=== PATIENT | female | born 1990 | race African-American/Black ===

== ENCOUNTER 2017-05-28 07:31 | Inpatient (IN) ==
[2017-05-28] MEDS ORDERED: ceFAZolin 2,000 MG in PREMIX 1 EACH IV ONE (07:49)
[2017-05-28] MEDS ORDERED: FAMOTIDINE 20 MG/2 ML VIAL IV ONE (07:49)
[2017-05-28] MEDS ORDERED: CITRIC ACID/SODIUM CITRATE 30 ML UDCUP PO ONE (07:49)
[2017-05-28] MEDS ORDERED: LACTATED RINGERS 1,000 ML IV SCH (08:00)
[2017-05-28 08:23] LABS: Basophils % 0.4 % (0.0-0.8); Eosinophils # 0.1 10*3/uL (0.0-0.87); Eosinophils % 2.1 % (0.00-10.9); Hemoglobin 11.2 GM/DL (12.0-16.0); Immature Granulocytes Absolute 0.05 #; Lymphocytes # 1.4 10*3/uL (1.4-4.0); Lymphocytes % 26.5 % (21.3-54.2); Mean Corpuscular HGB Conc 33.9 GM/DL (32-36); Mean Corpuscular Hemoglobin 31 PG (27-34); Mean Corpuscular Volume 92.4 FL (87-102); Monocytes # 0.5 10*3/uL (0.11-0.8); Monocytes % 9.8 % (1.7-12.7); Neutrophils # 3.1 10*3/uL (1.4-7.4); Neutrophils % 60.2 % (38.7-73.9); Platelet Count 104 T/CUMM (130-400); Red Blood Count 3.57 MC/CUMM (3.8-5.5); Red Cell Distribution Width 12.7 % (9.3-17.3); White Blood Count 5.2 T/CUMM (4-12)
[2017-05-28] MEDS ORDERED: LACTATED RINGERS 1,000 ML IV ONE (08:27)
[2017-05-28] MEDS ORDERED: OXYTOCIN 10 UNIT/ML VIAL IM ONE (08:36)
[2017-05-28] MEDS ORDERED: OXYTOCIN/LR 30 UNIT/1,000 ML BAG IV ONE (08:36)
[2017-05-28 08:42] LABS: Albumin 2.7 G/DL (3.4-5.0); Bilirubin,Total 0.4 MG/DL (0.2-1.0); Calcium 8.2 MG/DL (8.5-10.1); Osmolality,Calculated 274.4 MOS/KG (273-304); Potassium 3.5 MMOL/L (3.5-5.1); Total Protein 5.5 G/DL (6.4-8.3)
[2017-05-28] MEDS ORDERED: ePHEDrine 50 MG/ML AMP ONE (08:47)
[2017-05-28 10:06] LABS: Cord Venous Blood HCO3 24.7 MMOL/L; Cord Venous Blood PCO2 45.3 MMHG; Cord Venous Blood PO2 31.7
[2017-05-28 10:47] LABS: Apearance,Urine CLEAR (Clear); Bilirubin,Urine Negative (Negative); Blood, Urine Negative (Negative); Glucose,Urine (UA) Negative (Negative); Ketones,Urine Negative (Negative); Mucus,Urine Occasional /LPF (Occasional); Nitrite,Urine Negative (Negative); Protein,Urine Negative; Urine Color Straw (Yellow); Urine Specific Gravity 1.005 (1.001-1.035); Urine Urobilinogen < 2.0 EU/DL (0.2-1.0); WBC,Urine <1 /HPF (0-6)
[2017-05-28] MEDS ORDERED: MIDAZOLAM 2 MG/2 ML VIAL ONE (10:59)
[2017-05-28] MEDS ORDERED: KETAMINE 500 MG/10 ML VIAL ONE (11:00)
[2017-05-28] MEDS ORDERED: ONDANSETRON 4 MG/2 ML VIAL ONE ×2 (11:00→11:50)
[2017-05-28] MEDS ORDERED: LIDOCAINE MPF 2% /EPI 20 ML VIAL ONE (11:00)
[2017-05-28] MEDS ORDERED: PROMETHAZINE 25 MG/1 ML VIAL ONE (11:01)
[2017-05-28] MEDS ORDERED: MORPHINE 10 MG/10 ML VIAL ONE (11:02)
[2017-05-28] MEDS ORDERED: HYDROmorphone 2 MG/1 ML VIAL IV PRN (11:37)
[2017-05-28] MEDS ORDERED: OXYTOCIN/LR 20 UNIT/1,000 ML BAG IV ONE ×2 (11:42→13:02)
[2017-05-28] MEDS ORDERED: ONDANSETRON 4 MG/2 ML VIAL IV PRN ×2 (11:50→13:02)
[2017-05-28] MEDS ORDERED: ACETAMINOPHEN 325 MG TABLET PO PRN (13:02)
[2017-05-28] MEDS ORDERED: RHO(D) IMMUNE GLOBULIN 300 MCG SYRINGE IM ONE (13:30)
[2017-05-28 15:30] LABS: Basophils % 0.2 % (0.0-0.8); Eosinophils % 0.2 % (0.00-10.9); Hematocrit 30.8 VOL% (35.7-47.0); Hemoglobin 10.3 GM/DL (12.0-16.0); Immature Granulocytes Absolute 0.09 #; Lymphocytes % 10.5 % (21.3-54.2); Mean Corpuscular HGB Conc 33.4 GM/DL (32-36); Mean Corpuscular Hemoglobin 31 PG (27-34); Mean Corpuscular Volume 92.2 FL (87-102); Mean Platelet Volume 11.4 FL (9.6-12.0); Monocytes # 0.8 10*3/uL (0.11-0.8); Monocytes % 8.1 % (1.7-12.7); Neutrophils # 7.6 10*3/uL (1.4-7.4); Platelet Count 106 T/CUMM (130-400); Red Blood Count 3.34 MC/CUMM (3.8-5.5); Red Cell Distribution Width 12.7 % (9.3-17.3); White Blood Count 9.5 T/CUMM (4-12)
[2017-05-28] MEDS ORDERED: MEPERIDINE 25 MG/1 ML VIAL IV PRN (15:32)
[2017-05-28] MEDS ORDERED: miSOPROStol 200 MCG TABLET PO ONE (17:16)
[2017-05-28] MEDS: LACTATED RINGERS 1,000 ML IV SCH (17:24)
[2017-05-28] MEDS: ceFAZolin 1,000 MG in SYRINGE 1 EACH IV SCH (17:42)
[2017-05-28] MEDS: IBUPROFEN 800 MG TABLET PO PRN (19:51)
[2017-05-29] MEDS: ceFAZolin 1,000 MG in SYRINGE 1 EACH IV SCH (02:25)
[2017-05-29] MEDS: LACTATED RINGERS 1,000 ML IV SCH (02:27)
[2017-05-29 07:29] LABS: Basophils % 0.1 % (0.0-0.8); Eosinophils % 0.4 % (0.00-10.9); Hematocrit 21.4 VOL% (35.7-47.0); Immature Granulocytes Absolute 0.09 #; Lymphocytes # 0.9 10*3/uL (1.4-4.0); Lymphocytes % 9.3 % (21.3-54.2); Mean Corpuscular Hemoglobin 32 PG (27-34); Mean Corpuscular Volume 90.7 FL (87-102); Mean Platelet Volume 11.7 FL (9.6-12.0); Monocytes # 0.8 10*3/uL (0.11-0.8); Monocytes % 9.1 % (1.7-12.7); Neutrophils # 7.4 10*3/uL (1.4-7.4); Neutrophils % 80.1 % (38.7-73.9); Platelet Count 112 T/CUMM (130-400); White Blood Count 9.3 T/CUMM (4-12)
[2017-05-29 07:31] LABS: Hemoglobin 7.5 GM/DL (12.0-16.0); Red Blood Count 2.36 MC/CUMM (3.8-5.5)
[2017-05-29] MEDS: IBUPROFEN 800 MG TABLET PO PRN ×2 (07:45→17:05)
[2017-05-29 07:49] LABS: Band Neutrophils 8 % (0-10); Lymphocytes 12 % (20-55); Myelocytes 1 %; Segmented Neutrophils 77 % (50-85); Total Cells Counted 100
[2017-05-29 07:50] LABS: Hypochromasia 1+; Platelet Estimate Decreased
[2017-05-29 07:51] LABS: Giant Platelets Few
[2017-05-29] MEDS ORDERED: SODIUM CHLORIDE 0.9% 1,000 ML IV PRN (09:10)
[2017-05-29] MEDS: MULTIVITAMIN (PRENATAL) TABLET PO SCH (10:24)
[2017-05-29] MEDS: DOCUSATE SODIUM 100 MG CAPSULE PO SCH ×3 (10:24→22:05)
[2017-05-29] MEDS: SIMETHICONE CHEW 80 MG TABLET PO PRN (10:24)
[2017-05-29 18:58] LABS: Basophils % 0.2 % (0.0-0.8); Eosinophils # 0.1 10*3/uL (0.0-0.87); Eosinophils % 0.6 % (0.00-10.9); Hematocrit 26.2 VOL% (35.7-47.0); Hemoglobin 8.8 GM/DL (12.0-16.0); Immature Granulocytes % 1.4 %; Immature Granulocytes Absolute 0.15 #; Lymphocytes # 1.1 10*3/uL (1.4-4.0); Lymphocytes % 10.4 % (21.3-54.2); Mean Corpuscular HGB Conc 33.6 GM/DL (32-36); Mean Corpuscular Hemoglobin 31 PG (27-34); Mean Corpuscular Volume 91.3 FL (87-102); Mean Platelet Volume 12.1 FL (9.6-12.0); Monocytes # 1.1 10*3/uL (0.11-0.8); Monocytes % 10.3 % (1.7-12.7); Neutrophils # 8.1 10*3/uL (1.4-7.4); Neutrophils % 77.1 % (38.7-73.9); Red Blood Count 2.87 MC/CUMM (3.8-5.5); Red Cell Distribution Width 13.2 % (9.3-17.3); White Blood Count 10.5 T/CUMM (4-12)
[2017-05-29 19:09] LABS: Platelet Count 104 T/CUMM (130-400)
[2017-05-29] MEDS: FERROUS SULFATE 325 MG TABLET PO SCH (22:05)
[2017-05-30] MEDS: IBUPROFEN 800 MG TABLET PO PRN (01:54)
[2017-05-30 06:18] LABS: Hematocrit 22.5 VOL% (35.7-47.0); Hemoglobin 7.8 GM/DL (12.0-16.0)
[2017-05-30] MEDS ORDERED: SODIUM CHLORIDE 0.9% 1,000 ML IV PRN (07:01)
[2017-05-30] MEDS: MULTIVITAMIN (PRENATAL) TABLET PO SCH (09:16)
[2017-05-30] MEDS: DOCUSATE SODIUM 100 MG CAPSULE PO SCH ×2 (09:16→21:01)
[2017-05-30] MEDS: MAGNESIUM HYDROXIDE SUSP 30 ML UDCUP PO PRN ×2 (09:16→21:01)
[2017-05-30] MEDS: SIMETHICONE CHEW 80 MG TABLET PO PRN ×2 (09:16→21:01)
[2017-05-30] MEDS: FERROUS SULFATE 325 MG TABLET PO SCH ×2 (09:16→21:01)
[2017-05-30] MEDS ORDERED: oxyCODONE/ACETAMINOPHEN 5-325 MG TABLET PO PRN (14:05)
[2017-05-30 15:04] LABS: Basophils % 0.2 % (0.0-0.8); Eosinophils # 0.1 10*3/uL (0.0-0.87); Eosinophils % 1.1 % (0.00-10.9); Hematocrit 29.6 VOL% (35.7-47.0); Immature Granulocytes % 1.3 %; Immature Granulocytes Absolute 0.13 #; Lymphocytes # 1.1 10*3/uL (1.4-4.0); Mean Corpuscular HGB Conc 33.8 GM/DL (32-36); Mean Corpuscular Hemoglobin 30 PG (27-34); Mean Corpuscular Volume 87.8 FL (87-102); Mean Platelet Volume 11.7 FL (9.6-12.0); Monocytes % 10.3 % (1.7-12.7); Neutrophils # 7.6 10*3/uL (1.4-7.4); Neutrophils % 76.1 % (38.7-73.9); Platelet Count 106 T/CUMM (130-400); Red Blood Count 3.37 MC/CUMM (3.8-5.5); Red Cell Distribution Width 14.6 % (9.3-17.3); White Blood Count 10.1 T/CUMM (4-12)
[2017-05-30] MEDS: oxyCODONE/ACETAMINOPHEN 5-325 MG TABLET PO PRN ×2 (17:02→22:28)
[2017-05-31] MEDS: IBUPROFEN 800 MG TABLET PO PRN (04:30)
[2017-05-31 08:21] VITALS: BP 108/67
[2017-05-31] MEDS: MULTIVITAMIN (PRENATAL) TABLET PO SCH (09:20)
[2017-05-31] MEDS: DOCUSATE SODIUM 100 MG CAPSULE PO SCH (09:20)
[2017-05-31] MEDS: FERROUS SULFATE 325 MG TABLET PO SCH (09:20)
[2017-05-31] MEDS: oxyCODONE/ACETAMINOPHEN 5-325 MG TABLET PO PRN (11:26)
== END 2017-05-31 15:00 | disposition home or self-care (01) | DRG 540 ==
LOC: N.LDOUT 07:31 → N.LD 07:37 → N.OB 13:01
PROVIDERS: ADMIT Obstetrics & Gynecology; ATTEND Obstetrics & Gynecology